=== PATIENT | female | born 1975 | race Two or more races ===

== ENCOUNTER 2019-01-15 18:25 | Emergency (ER) | payer OTHER ==
[~2019-01-15] VITALS: Ht 152.4 cm; Wt 51.4 kg
[2019-01-15 18:55] LABS: GLUCOSE,POINT OF CARE 130 MG/DL (70-110)
[2019-01-15 19:59] VITALS: BP 119/85
== END 2019-01-15 21:04 | disposition home or self-care (01) ==
LOC: EMS 18:29
DX: F11.10 Opioid abuse, uncomplicated (principal); F17.210 Nicotine dependence, cigarettes, uncomplicated; Z88.8 Allergy status to other drugs, medicaments and biological substances